=== PATIENT | male | born 1975 | race African-American/Black ===

== ENCOUNTER 2017-12-03 13:44 | Emergency (ER) | payer SELFPAY ==
[~2017-12-03] VITALS: Ht 170.2 cm; Wt 73.0 kg
[2017-12-03 15:27] LABS: BASOPHILS % 0.4 % (0.0-2.0); EOSINOPHILS % 0.2 % (0.0-5.0); HEMATOCRIT. 44.4 % (42.0-52.0); HEMOGLOBIN. 14.7 g/dL (14.0-18.0); LYMPHOCYTES % 11.6 % (20.0-50.0); MEAN CORPUSCULAR HEMOGLOBIN 30.9 pg (28.0-32.0); MONOCYTES % 7.1 % (2.0-8.0); NEUTROPHILS % 80.7 % (40.0-76.0); PLATELET 308 x1000/uL (130-400); RED BLOOD CELL COUNT 4.77 mill/uL (4.7-6.1); RED CELL DISTRIBUTION WIDTH 12.4 % (11.6-14.6)
[2017-12-03 15:34] LABS: CHLORIDE 109 mEq/L (98-107)
[2017-12-03 15:41] LABS: ETHANOL BLOOD 17 mg/dL
[2017-12-03 19:51] VITALS: BP 99/59
== END 2017-12-03 20:04 | disposition home or self-care (01) ==
LOC: ER 14:32
DX: F20.9 Schizophrenia, unspecified (principal); F31.9 Bipolar disorder, unspecified; R45.6 Violent behavior
CPT/HCPCS: 36415; 80053; 85025; 99284; G0482; Z7610